=== PATIENT | female | born 1970 | race Caucasian/White ===

== ENCOUNTER → 2022-08-12 15:33 | Outpatient (CLI) | payer OTHER, SELFPAY ==
--- NOTE | 2022-08-12 15:33 | US_ITS ---
FINAL REPORT CLINICAL HISTORY: pelvic pain FINDINGS: Transvaginal sonographic images of the pelvis were obtained. The uterus measures 6.8 x 5.2 x 3.8 cm. The endometrium measures 6 mm, which is within normal limits. There is a probable 1.6 cm uterine fibroid. The right ovary measures 2.3 cm in length and left ovary measures 3.3 cm in length. Normal blood flow seen to the ovaries. There is no evidence of free fluid. IMPRESSION: 1.6 cm probable uterine fibroid. Reviewed, Interpreted and Dictated by Surinder Witt III, MD Transcribed by Siomara Pete Authenticated and . [facility]
--- NOTE | 2022-08-12 15:33 | MM_ITS ---
PROCEDURE INFORMATION: Exam: MG Bilateral Screening 3D Mammography Exam date and time: 08/12/2022 3:54 PM Age: 51 years old Clinical indication: Screening. No family history of breast cancer. TECHNIQUE: Imaging protocol: Bilateral Screening tomosynthesis and 2D mammography including computer-aided detection (CAD) when performed. COMPARISON: 1. MG Screening-Bilateral Mammography 02/06/2020 4:16 PM 2. MG MAMMO SCREENING DIGITAL BILAT 09/13/2015 5:35 PM 3. MG DIG MAMMO BILAT SCREENING 12/22/2012 2:26 PM FINDINGS: MAMMOGRAPHY: Breast composition: There are scattered areas of fibroglandular density. Mass: Possible 0.6 cm oval mass/asymmetry, best seen in the outer right breast, middle 3rd, 5-6 cm, CC frame 52, and possibly in the upper breast, MLO frame 24. (The more anterior oval mass/asymmetry in the right upper outer quadrant is stable since 02/06/2020). Architectural distortion: None. Calcifications: No suspicious calcifications. Asymmetric density: None. Skin thickening: None. Axillary adenopathy: None. IMPRESSION: Patient to be recalled for right diagnostic mammography with spot compression in the CC and MLO as well as full field lateral and right sonography for further evaluation of possible right breast mass/asymmetry ASSESSMENT: BI-RADS Category 0: Incomplete- Need Additional Imaging Evaluation and/or Prior Mammograms for Comparison
== END ==
PROVIDERS: PCP Emergency Medicine; Visit Provider Obstetrics & Gynecology
DX: Z12.31 Encounter for screening mammogram for malignant neoplasm of breast (principal); R10.2 Pelvic and perineal pain
CPT/HCPCS: 76830; 77063; 77067